=== PATIENT | female | born 1945 | race Caucasian/White ===

== ENCOUNTER 2022-05-20 02:20 | Emergency (ER) | payer MEDICARE, BC ==
[2022-05-20 03:53] LABS: CHLORIDE,CL 103 mmol/L (98-107); SODIUM,NA 140 mmol/L (136-145)
[2022-05-20 03:59] LABS: ESTIMATED GFR 59 mL/min (>=60)
== END 2022-05-20 04:28 | disposition home or self-care (01) ==
LOC: VM.ED 02:20
DX: R53.1 Weakness (principal); E11.9 Type 2 diabetes mellitus without complications; E78.00 Pure hypercholesterolemia, unspecified; Z79.899 Other long term (current) drug therapy
CPT/HCPCS: 36415; 80053; 81001; 82550; 83615; 84484; 85025; 86140; 93005; 93010; 99284